=== PATIENT | male | born 1960 | race Caucasian/White ===

== ENCOUNTER → 2024-04-17 10:42 | Outpatient (BNVA) | payer OTHER, SELFPAY | PROVIDERS: PCP Emergency Medicine; Referring Provider Emergency Medicine; Visit Provider Physician Assistant | DX: M23.92 Unspecified internal derangement of left knee (principal); M17.12 Unilateral primary osteoarthritis, left knee | CPT/HCPCS: 73560; 73565 ==

== ENCOUNTER 2024-04-17 15:15 | Outpatient (CLI) | payer OTHER, SELFPAY | END 2024-04-17 15:16 | disposition home or self-care (01) | LOC: SPT 15:15 | PROVIDERS: PCP Emergency Medicine; Visit Provider Physician Assistant | DX: Z46.89 Encounter for fitting and adjustment of other specified devices (principal); M25.562 Pain in left knee | CPT/HCPCS: L1851 ==